=== PATIENT | male | born 1940 | race Two or more races ===

== ENCOUNTER → 2017-03-08 | Outpatient (CLI) | payer OTHER | LOC: CIMAGING 11:30 | PROVIDERS: ATTEND Family Medicine | DX: J18.9 Pneumonia, unspecified organism (principal); J44.1 Chronic obstructive pulmonary disease with (acute) exacerbation | CPT/HCPCS: 71020-PO ==

== ENCOUNTER → 2017-06-14 | Outpatient (CLI) | payer OTHER | LOC: CIMAGING 15:20 | PROVIDERS: ATTEND Family Medicine | DX: J18.9 Pneumonia, unspecified organism (principal); J44.9 Chronic obstructive pulmonary disease, unspecified | CPT/HCPCS: 71020-PO ==

== ENCOUNTER → 2017-08-11 | Outpatient (CLI) | payer OTHER | LOC: BHFA 14:00 | PROVIDERS: ATTEND Internal Medicine Cardiovascular Disease | DX: I25.10 Atherosclerotic heart disease of native coronary artery without angina pectoris (principal) | CPT/HCPCS: 78452; 93017; A9500 ==

== ENCOUNTER 2017-08-17 12:47 | Day surgery (SDC) | payer OTHER ==
[2017-08-17] MEDS ORDERED: NS 1,000 ML IV ONE (12:48)
[2017-08-17] MEDS ORDERED: diphenhydrAMINE 25 MG CAP PO ONE ×2 (12:48→13:27)
[2017-08-17] MEDS ORDERED: DIAZEPAM 5 MG TAB PO ONE (12:48)
[2017-08-17] MEDS ORDERED: ASPIRIN EC 325 MG TAB PO ONE ×2 (12:48→13:28)
[2017-08-17] MEDS ORDERED: FAMOTIDINE 20 MG TAB PO ONE (12:48)
--- NOTE | 2017-08-17 13:15 | CPEKG ---
Heart Rate: 57 RR Interval: 1053 P-R Interval: 126 QRSD Interval: 108 QT Interval: 452 QTC Interval: 440 P [place]: -38 QRS [place]: -46 T Wave [place]: 51 EKG Severity - ABNORMAL ECG - EKG Impression: SINUS RHYTHM EKG Impression: LEFT ANTERIOR FASCICULAR BLOCK Electronically Signed By: Sarabjit Sargent 17-Aug-2017 13:30:20
[2017-08-17] MEDS ORDERED: FAMOTIDINE 20 MG TAB ONE (13:27)
[2017-08-17 13:28] LABS: PLATELET COUNT 147 10^3/uL (150-400)
[2017-08-17] MEDS ORDERED: DIAZEPAM 5 MG TAB ONE (13:28)
[2017-08-17 13:37] LABS: INR 1.02 (0.83-1.16); PROTIME(PATIENT) 13.6 SEC (12.0-15.0)
[2017-08-17] MEDS ORDERED: LIDOCAINE 1% 300 MG/30 ML SDV ONE (14:18)
[2017-08-17] MEDS ORDERED: fentaNYL 100 MCG/2 ML INJ ONE ×2 (14:19→15:33)
[2017-08-17] MEDS ORDERED: MIDAZOLAM 2 MG/2 ML VIAL ONE ×3 (14:19→15:33)
[2017-08-17] MEDS ORDERED: IOPAMIDOL (ISOVUE-370) 150 ML BTL IV ONE (14:19)
--- NOTE | 2017-08-17 15:07 | PDPROPOC ---
Sedation Plan of Care Sedation Plan of Care: vital signs stable, mental status noted, patient educated of risks, benefits, alternatives, patient can tolerate sedation ASA Classification: ASA 2 Planned drugs: fentanyl, midazolam Mallampati Score: Class 3 Mallampati Reference Image: Patient passed 3-3-2 rule?: Yes
--- NOTE | 2017-08-17 15:07 | PDHPUP ---
History & Physical Update H&P update statement: This history and physical update is based on an assessment of the patient which was completed after admission or registration (within 24 hours), but prior to the surgery/procedure. H&P update: H&P reviewed & patient examined, no change in patient's condition since H&P completed
[2017-08-17] MEDS ORDERED: MAGNESIUM SULF 1 GM/DEXTROSE 100 ML BAG IV ONE (15:28)
--- NOTE | 2017-08-17 16:52 | PDDXCAT ---
Diagnostic Cath Note - . Date: 08/17/17 Inspector Set Up And Lay Out: Zoran Indication: Class III or IV angina, which improves to class I/II w medical therapy - Procedure Access: right groin Procedure: left heart catheterization, coronary angiography, left ventriculogram - Materials Left Heart Cath size: 6F Left Heart Cath materials: standard multipack (JL4, JR4, pigtail) - Findings-Left Heart Catheterization LM: Medium diameter with bifurcation into the LAD and LCX vessels. No luminal irregularities were noted. LAD: Medium diameter vessel with early diag take off. Second diag is the more principal of the two. Moderate prox/mid calcification was noted. Patent stent to the mid LAD appreciated (with 10% luminal irregularities). In the proximal vessel (in vicinity of the calcium) there is upwards of 50% stenosis noted. LCX: Medium to large caliber vessel with early OM take off (smallish). Second diagonal is more principal of the brach vessels noted. There is 20% luminal irregularities noted in the mid vessel. RCA: Medium diameter vessel with minor luminal irregularities noted. Dominant vessel given supply to the PDA. EDP: 19 mm Hg LVEF: >65% Wall motion: normal wall motion Complications: none Estimated blood loss: <50ml Closure method: Angioseal Assessment: 77 y/o male with history of CAD s/p PCI to the mid LAD. Abnormal stress testing without appreciable, critical CAD noted. Previously stented vessel with minimal luminal irregularities. There was a 50% lesion (lengthy) to the proximal LAD. Issues with medication compliance voiced again today. Plan: Aggressive medical management to continue, with a great need to have compliance that has not been achieved (reasons are not clear). Statins and antihypertensive therapy MUST be taken. Patient has also reported tobacco use, which needs to stop. ASA therapy for life. Would have the patient seen in the outpatient clinic in 7-10 days for assessment of groin, but more importantly, reiteration of compliance with prescribed medical therapy. Intervention: none
== END 2017-08-17 19:11 | disposition home or self-care (01) ==
LOC: FCATH 12:47
PROVIDERS: ATTEND Internal Medicine Cardiovascular Disease
DX: I25.119 Atherosclerotic heart disease of native coronary artery with unspecified angina pectoris (principal); Z91.19 Patient's noncompliance with other medical treatment and regimen; E78.5 Hyperlipidemia, unspecified; I10 Essential (primary) hypertension; E11.9 Type 2 diabetes mellitus without complications; F17.210 Nicotine dependence, cigarettes, uncomplicated; G47.33 Obstructive sleep apnea (adult) (pediatric)
CPT/HCPCS: C1760; J1644; J2250; J3010; J3475; Q9967

== ENCOUNTER → 2017-09-12 | Outpatient (CLI) | payer OTHER | LOC: CIMAGING 14:05 | PROVIDERS: ATTEND Family Medicine | DX: J98.11 Atelectasis (principal); J44.9 Chronic obstructive pulmonary disease, unspecified; Z95.5 Presence of coronary angioplasty implant and graft | CPT/HCPCS: 71046-PO ==

== ENCOUNTER → 2018-01-05 | Outpatient (CLI) | payer OTHER ==
[~2018-01-05] MED LIST: IOPAMIDOL (ISOVUE-300) 100 ML BTL ONE
== END ==
LOC: CIMAGING 14:23
PROVIDERS: ATTEND Family Medicine
DX: K86.9 Disease of pancreas, unspecified (principal); E27.9 Disorder of adrenal gland, unspecified; J98.11 Atelectasis; J44.9 Chronic obstructive pulmonary disease, unspecified; I25.10 Atherosclerotic heart disease of native coronary artery without angina pectoris; F17.290 Nicotine dependence, other tobacco product, uncomplicated
CPT/HCPCS: 71260; 74177; Q9967; 82565-PO

== ENCOUNTER → 2018-01-09 | Outpatient (CLI) | payer OTHER ==
[~2018-01-09] MED LIST changes: +GADOBUTROL 10 ML VIAL IVP ONE; -IOPAMIDOL (ISOVUE-300) 100 ML BTL ONE
== END ==
LOC: FIMAGING 14:06
PROVIDERS: ATTEND Family Medicine
DX: K86.9 Disease of pancreas, unspecified (principal); R63.4 Abnormal weight loss; Z72.0 Tobacco use
CPT/HCPCS: 74183; A9585

== ENCOUNTER → 2018-08-09 | Outpatient (CLI) | payer OTHER | LOC: CIMAGING 12:08 | PROVIDERS: ATTEND Family Medicine | DX: C25.9 Malignant neoplasm of pancreas, unspecified (principal); I26.99 Other pulmonary embolism without acute cor pulmonale; R06.02 Shortness of breath; R09.02 Hypoxemia; Z99.81 Dependence on supplemental oxygen; J98.11 Atelectasis; K76.9 Liver disease, unspecified; N28.1 Cyst of kidney, acquired | CPT/HCPCS: 36415-PO; 71275-PO; 74177-PO; 82565-PO; 86301-90 ==

== ENCOUNTER → 2018-10-28 | Outpatient (CLI) | payer OTHER ==
[~2018-10-28] MED LIST changes: -GADOBUTROL 10 ML VIAL IVP ONE; +IOPAMIDOL (ISOVUE-300) 100 ML BTL ONE
== END ==
LOC: CIMAGING 11:24
PROVIDERS: ATTEND Family Medicine
DX: K76.9 Liver disease, unspecified (principal); K63.89 Other specified diseases of intestine; C25.9 Malignant neoplasm of pancreas, unspecified; Z90.81 Acquired absence of spleen; Z90.411 Acquired partial absence of pancreas
CPT/HCPCS: 74177; Q9967; 82565-PO

== ENCOUNTER 2018-11-02 09:17 | Inpatient (IN) | payer OTHER ==
[2018-11-02] MEDS ORDERED: NS 2,600 ML IV ONE (10:17)
--- NOTE | 2018-11-02 10:19 | EDPHY ---
H & P Stated Complaint: sent from tina ? pna fever hypoxia Time Seen by Provider: 11/02/18 10:12 HPI/ROS: CHIEF COMPLAINT: Fatigue, fever, short of breath, confusion HISTORY OF PRESENT ILLNESS: Patient is a 78-year-old man with a history of pancreatic cancer status post Whipple currently receiving chemotherapy. Also mild COPD. He presented to Dr. Tina Sr office today stating that he was fatigued and short of breath. Dr. Arango felt that he had left lower lobe rhonchi and was 86% on room air. His temperature is 99.9 degrees. He sent him here for further evaluation. The patient tells me that he feels confused as well and that he woke up on the ground some point in the middle the night and thinks he might have fainted. He is not sure how he got there what happened. He woke up this morning and thought that he was in [place]. He denies chest pain. No nausea vomiting or diarrhea. No urinary symptoms. He does state that he had left lower abdominal pain last week and was started on an unknown antibiotic by his doctor that has made him feel better. He denies cough, sore throat or runny nose. Severity: Moderate Modifying factors: None REVIEW OF SYSTEMS: Constitutional: See HPI EENTM: denies: blurred vision, double vision, nose congestion Respiratory: See HPI Cardiac: denies: chest pain, irregular heart rate, lightheadedness, palpitations Gastrointestinal/Abdominal: denies: abdominal pain, diarrhea, nausea, vomiting, blood streaked stools Genitourinary: denies: dysuria, frequency, hematuria, pain Musculoskeletal: denies: joint pain, muscle pain Skin: denies: lesions, rash, jaundice, bruising Neurological: denies: headache, numbness, paresthesia, tingling, dizziness, weakness Hematologic/Lymphatic: denies: blood clots, easy bleeding, easy bruising Immunologic/allergic: denies: HIV/AIDS, transplant 10 systems reviewed and negative except as noted EXAM: GENERAL: Thin, dry, weak HEAD: Atraumatic, normocephalic. EYES: Pupils equal round and reactive to light, extraocular movements intact, sclera anicteric, conjunctiva are normal. ENT: TMs normal, nares patent, oropharynx clear without exudates. Moist mucous membranes. NECK: Normal range of motion, supple without lymphadenopathy or JVD. LUNGS: Breath sounds clear to auscultation bilaterally and equal. No wheezes rales or rhonchi. HEART: Regular rate and rhythm without murmurs, rubs or gallops. ABDOMEN: Soft, nontender, normoactive bowel sounds. No guarding, no rebound. No masses appreciated. BACK: No CVA tenderness, no spinal tenderness, step-offs or deformities EXTREMITIES: Normal range of motion, no pitting or edema. No clubbing or cyanosis. NEUROLOGICAL: Cranial nerves II through XII grossly intact. Normal speech, normal gait. 4/5 strength, normal movement in all extremities, normal sensation , normal reflexes PSYCH: Normal mood, normal affect. SKIN: Warm, dry, normal turgor, no visible rashes or lesions. Source: Patient Exam Limitations: No limitations - Personal History Current Tetanus Diphtheria and Acellular Pertussis (TDAP): Yes - Medical/Surgical History Hx Asthma: No Hx Chronic Respiratory Disease: Yes Hx Diabetes: Yes Hx Cardiac Disease: No Hx Renal Disease: No Hx Cirrhosis: No Hx Alcoholism: No Hx HIV/AIDS: No Hx Splenectomy or Spleen Trauma: No Other PMH: pancreatic cancer/chemo patient /copd/ htn chronic pain back /neck - Family History Significant Family History: No pertinent family hx - Social History Smoking Status: Former smoker Alcohol Use: None Constitutional: Initial Vital Signs Temperature (C) 38.1 C 11/02/18 09:24 Heart Rate 60 11/02/18 09:24 Respiratory Rate 18 11/02/18 09:24 Blood Pressure 94/55 L 11/02/18 09:24 O2 Sat (%) 95 11/02/18 09:24 O2 Delivery Mode Room Air O2 (L/minute) 3 Allergies/Adverse Reactions: No Known Allergies Allergy (Verified 11/02/18 09:22) Home Medications: Medication Instructions Recorded Atorvastatin Calcium [Lipitor 40 40 mg PO HS 08/15/17 mg (*)] Insulin Degludec [Tresiba 15 units SQ BID 08/15/17 Flextouch U-100] Metformin HCl [Metformin 1000 mg] 1,000 mg PO BID 08/15/17 amLODIPine BESYLATE [Norvasc 10 mg 10 mg PO HS 08/15/17 (*)] morphINE SR [MS Contin/Oramorph SR 30 mg PO TID 01/24/18 30 mg (*)] Amoxicillin/Clavulanate Pot 875 mg PO BID 11/02/18 [Augmentin 875 MG TAB (*)] Gabapentin [Neurontin 300 MG (*)] 600 - 900 mg PO BID@,21 11/02/18 Gabapentin [Neurontin 300 MG (*)] 600 mg PO DAILY@12 11/02/18 Insulin Lispro [Humalog] 0 - 11 unit SQ QIDMEAL 11/02/18 Lipase/Protease/Amylase [Cata Dr 2 - 3 each PO TIDMEAL 11/02/18 3,000 Units Capsule] Metoprolol Tartrate [Lopressor 25 25 mg PO BID 11/02/18 mg (*)] Omeprazole 40 mg PO DAILY 11/02/18 Rivaroxaban [Xarelto 10mg (*)] 20 mg PO HS 11/02/18 oxyCODONE IR [Oxycodone Ir (*)] 20 mg PO Q6HRS PRN 11/02/18 Medical Decision Making - Diagnostics EKG Interpretation: An EKG obtained and was read and documented in trace view. Please see trace view for full reading and report. Sinus rhythm, no acute ischemic changes Imaging Results: Imaging Impressions Chest X-Ray 11/02/18 10:17 Impression: 1. Stable elevation right hemidiaphragm with adjacent compressive atelectatic change. 2. Patchy infiltrate/pneumonia suspected left lower lobe posteriorly. Head CT 11/02/18 10:19 Impression: 1. No acute intracranial findings. 2. Diffuse cerebral atrophy with periventricular and subcortical low attenuation consistent with chronic microvascular ischemic gliosis. Findings discussed with DEBBY SANTANA 11/02/2018 at 11:50. Imaging: Discussed imaging studies w/ order desk caller Radiologist ED Course/Re-evaluation: Patient has pneumonia on x-ray. He is hypoxic pad he meets criteria for severe sepsis. Fluid bolus and antibiotics have been given. Will admit to the hospitalist service. Discussed the case with hospital service who will admit. Oncology Dr. Michaels is also here to evaluate as well as Dr. Barkley. Differential Diagnosis: Partial list of the Differential diagnosis considered include but were not limited to; pneumonia, sepsis, syncope, dehydration, arrhythmia and although unlikely based on the history and physical exam, I also considered metastasis, intracranial injury. I discussed these differential diagnoses and the plan with the patient as well as the usual and expected course. The patient understands that the diagnosis is provisional and that in medicine we are not always correct and that further workup is often warranted. Usual and customary warnings were given. All of the patient's questions were answered. The patient was instructed to return to the emergency department should the symptoms at all worsen or return, otherwise to followup with the physician as we discussed. - Data Points Laboratory Results: Laboratory Results 11/02/18 10:30 11/02/18 10:30 11/02/18 11/02/18 11/02/18 11:12 10:30 10:30 WBC RBC Hgb Hct MCV MCH MCHC RDW Plt Count MPV Neut % (Auto) Lymph % (Auto) [place] % (Auto) Eos % (Auto) Baso % (Auto) Nucleat RBC Rel Count Absolute Neuts (auto) Absolute Lymphs (auto) Absolute Monos (auto) Absolute Eos (auto) Absolute Basos (auto) Absolute Nucleated RBC Immature Gran % Seg Neutrophils % Band Neutrophils % Lymphocytes % Monocytes % Eosinophils % Basophils % Metamyelocytes % Myelocytes % Promyelocytes % Blast Cells % Immature Gran # Absolute Seg Neuts Absolute Band Neuts Absolute Lymphocytes Absolute Monocytes Absolute Eosinophils Absolute Basophils Absolute Metamyelocyte Absolute Myelocytes Absolute Promyelocytes Absolute Plasma Cells Nucleated RBCs Absolute Blast Cells Plasma Cells % Toxic Granulation Dohle Bodies Platelet Estimate Hypochromasia Pappenheimer Bodies Oval Macrocytes [place] Bodies Echinocytes Acanthocytes (Spur) Smear Review By PT 19.4 SEC H SEC (12.0-15.0) INR 1.72 H (0.83-1.16) APTT 34.7 SEC SEC (23.0-38.0) VBG Lactic Acid 1.4 mmol/L mmol/L (0.7-2.1) Sodium 134 mEq/L L mEq/L (135-145) Potassium 3.9 mEq/L mEq/L (3.5-5.2) Chloride 103 mEq/L mEq/L (97-110) Carbon Dioxide 23 mEq/l mEq/l (22-31) Anion Gap 8 mEq/L mEq/L (6-14) BUN 18 mg/dL mg/dL (7-23) Creatinine 1.1 mg/dL mg/dL (0.7-1.3) Estimated GFR > 60 Glucose 134 mg/dL H mg/dL (70-100) Calcium 8.2 mg/dL L mg/dL (8.5-10.4) Total Bilirubin 0.7 mg/dL mg/dL (0.1-1.4) Creatine Kinase 764 IU/L H IU/L (0-224) CK-MB (CK-2) Fraction 3.85 ng/mL ng/mL (0.00-4.55) CK-MB (CK-2) % 0.5 % % (0.0-4.0) Creatine Kinase Interp NEGATIVE (NEGATIVE) 11/02/18 11/02/18 10:30 10:30 WBC 8.62 10^3/uL 10^3/uL (3.80-9.50) RBC 3.07 10^6/uL L 10^6/uL (4.40-6.38) Hgb 9.0 g/dL L g/dL (13.7-17.5) Hct 28.7 % L % (40.0-51.0) MCV 93.5 fL fL (81.5-99.8) MCH 29.3 pg pg (27.9-34.1) MCHC 31.4 g/dL L g/dL (32.4-36.7) RDW 21.3 % H % (11.5-15.2) Plt Count 131 10^3/uL L 10^3/uL (150-400) MPV TNP Neut % (Auto) 43.8 % % (39.3-74.2) Lymph % (Auto) 25.5 % % (15.0-45.0) [place] % (Auto) 29.8 % H % (4.5-13.0) Eos % (Auto) 0.1 % L % (0.6-7.6) Baso % (Auto) 0.2 % L % (0.3-1.7) Nucleat RBC Rel Count 0.9 % H % (0.0-0.2) Absolute Neuts (auto) 3.77 10^3/uL 10^3/uL (1.70-6.50) Absolute Lymphs (auto) 2.20 10^3/uL 10^3/uL (1.00-3.00) Absolute Monos (auto) 2.57 10^3/uL H 10^3/uL (0.30-0.80) Absolute Eos (auto) 0.01 10^3/uL L 10^3/uL (0.03-0.40) Absolute Basos (auto) 0.02 10^3/uL 10^3/uL (0.02-0.10) Absolute Nucleated RBC 0.08 10^3/uL H 10^3/uL (0-0.01) Immature Gran % 0.6 % % (0.0-1.1) Seg Neutrophils % 43.3 % % Band Neutrophils % 8.2 % % Lymphocytes % 26.8 % % Monocytes % 21.7 % % Eosinophils % 0.0 % % Basophils % 0.0 % % Metamyelocytes % 0.0 % % Myelocytes % 0.0 % % Promyelocytes % 0.0 % % Blast Cells % 0.0 % % Immature Gran # 0.05 10^3/uL 10^3/uL (0.00-0.10) Absolute Seg Neuts 3.73 10^3/uL 10^3/uL (1.70-6.50) Absolute Band Neuts 0.71 10^3/uL H 10^3/uL (0.00-0.70) Absolute Lymphocytes 2.31 10^3/uL 10^3/uL (1.00-3.00) Absolute Monocytes 1.87 10^3/uL H 10^3/uL (0.30-0.80) Absolute Eosinophils 0.00 10^3/uL L 10^3/uL (0.03-0.40) Absolute Basophils 0.00 10^3/uL L 10^3/uL (0.02-0.10) Absolute Metamyelocyte 0.00 10^3/mL 10^3/mL (0.00-0.00) Absolute Myelocytes 0.00 10^3/mL 10^3/mL (0.00-0.00) Absolute Promyelocytes 0.00 10^3/uL 10^3/uL (0.00-0.00) Absolute Plasma Cells 0.00 10^3/uL 10^3/uL (0.00-0.00) Nucleated RBCs 2.1 /100 WBC H /100 WBC (0-0) Absolute Blast Cells 0.00 10^3/uL 10^3/uL (0.00-0.00) Plasma Cells % 0.0 % % Toxic Granulation PRESENT H Dohle Bodies PRESENT H Platelet Estimate DECREASED L (ADEQ) Hypochromasia 1+ H Pappenheimer Bodies 1+ H Oval Macrocytes 2+ H [place] Bodies 1+ H Echinocytes 2+ H Acanthocytes (Spur) 1+ H Smear Review By Pending PT INR APTT VBG Lactic Acid 2.7 mmol/L H mmol/L (0.7-2.1) Sodium Potassium Chloride Carbon Dioxide Anion Gap BUN Creatinine Estimated GFR Glucose Calcium Total Bilirubin Creatine Kinase CK-MB (CK-2) Fraction CK-MB (CK-2) % Creatine Kinase Interp Medications Given: Discontinued Medications Sodium Chloride (Ns) 2,600 mls @ 5,200 mls/hr 30 ml/kg infuse over 30 min ( 2600 ml) IV EDNOW ONE PRN Reason: Protocol Stop: 11/02/18 10:46 Last Admin: 11/02/18 10:41 Dose: 2,600 mls Azithromycin 500 mg/ Sodium (Chloride) 255 mls @ 255 mls/hr IV EDNOW ONE PRN Reason: Protocol Stop: 11/02/18 12:46 Last Admin: 11/02/18 12:00 Dose: 255 mls Ceftriaxone Sodium/Dextrose (Rocephin 1 Gm (Premix)) 50 mls @ 100 mls/hr IV EDNOW ONE PRN Reason: Protocol Stop: 11/02/18 12:15 Last Admin: 11/02/18 11:58 Dose: 50 mls Departure - Departure Disposition: [facility] Inpatient Acute Clinical Impression: Severe sepsis Pneumonia Qualifiers: Pneumonia type: due to unspecified organism Laterality: left Lung location: lower lobe of lung Qualified Code(s): J18.1 - Lobar pneumonia, unspecified organism Condition: Fair
[2018-11-02 11:01] LABS: PLATELET COUNT 131 10^3/uL (150-400)
[2018-11-02 11:07] LABS: CREATINE KINASE 764 IU/L (0-224)
[2018-11-02 11:40] LABS: INR 1.72 (0.83-1.16); PROTIME(PATIENT) 19.4 SEC (12.0-15.0)
[2018-11-02] MEDS ORDERED: AZITHROMYCIN IV 500 MG in NS 250 ML IV ONE (11:47)
--- NOTE | 2018-11-02 12:06 | CPEKG ---
Test Reason : OPEN Blood Pressure : / mmHG Vent. Rate : 056 BPM Atrial Rate : 056 BPM P-R Int : 153 ms QRS Dur : 115 ms QT Int : 490 ms P-R-T Axes : 058 -43 048 degrees QTc Int : 473 ms Sinus rhythm Nonspecific IVCD with LAD Confirmed by Kirk Lowe ([id number]) on 11/02/2018 12:05:57 PM Referred By: Kirk Lowe Confirmed By:Kirk Lowe
--- NOTE | 2018-11-02 13:24 | PDGENHP ---
History and Physical - Chief Complaint Chief complaint: Fatigue, generalized weakness, intermittent confusion/mem - History of Present Illness he patient is a 78-year-old male with a 2 week history of progressively worsening generalized weakness and fatigue. Last night he fell in his bathroom and was too weak to get up, so he fell asleep for a few hours. His son was unable to get ahold of him, so he drove out to help his father get up again and get into his bed. Overnight the patient does not remember falling out of his bed , but he woke up on the floor of his bedroom early this morning. He initially thought he must be in a hotel room in [place] because he did not recognize his surroundings. Later, he realized he was in his own home. The patient went to his HemOnc appointment at the [facility] today, where he was found to have rhonchi in is left lung, O2 sat 86% on RA, and Temp 99.9F. He was promptly sent to the ED, where chest XR showed LLL patchy infiltrate and head CT was negative for acute changes. Last week, the patient started to get LLQ abdominal pain which was similar to when he was hospitalized at [facility] for ischemic colitis. His PCP had put him on Augmentin 4 days ago for this issue. Symptoms of weakness are better with rest. Nothing makes the fatigue and intermittent confusion/memory loss better. He feels frustrated because he is unable to remember some things, like the name of the surgeon who performed his cancer resection surgery in July. He had been diagnosed with a blood clot ( pointing out his R abdomen), but does not remember the name of it. He does not recall having these symptoms in the past. Past medical history: COPD, CAD, diabetes, HLD, HTN, TOM, pancreatic cancer, PE , PNA x 2 Past surgical history: Partial Pancreas/spleen resection, coronary stents, eye surgery, hernia repair, carotid artery stenosis Medications: Please see med rec form. Patient was recently started on Augmentin 4 days ago by his PCP for suspected recurrent ischemic colitis. Allergies: No known allergies. Social history: Former smoker of 40 years. Does not drink alcohol or do drugs. Lives alone. His son lives in the [facility] area. Family history: Congestive heart failure. History Information - Allergies/Home Medication List Allergies/Adverse Reactions: No Known Allergies Allergy (Verified 11/02/18 09:22) Home Medications: Atorvastatin Calcium [Lipitor 40 mg (*)] 40 mg PO HS 08/15/17 [Last Taken ] Insulin Degludec [Tresiba Flextouch U-100] 15 units SQ BID 08/15/17 [Last Taken 11/01/18 21:00] Metformin HCl [Metformin 1000 mg] 1,000 mg PO BID 08/15/17 [Last Taken 11/01/18 21:00] amLODIPine BESYLATE [Norvasc 10 mg (*)] 10 mg PO HS 08/15/17 [Last Taken ] morphINE SR [MS Contin/Oramorph SR 30 mg (*)] 30 mg PO TID 01/24/18 [Last Taken 11/01/18 21:00] Amoxicillin/Clavulanate Pot [Augmentin 875 MG TAB (*)] 875 mg PO BID 11/02/18 [ Last Taken 11/02/18] Gabapentin [Neurontin 300 MG (*)] 600 - 900 mg PO BID@11/02/18 [Last Taken 11/01/18 21:00] Gabapentin [Neurontin 300 MG (*)] 600 mg PO DAILY@12 11/02/18 [Last Taken ] Insulin Lispro [Humalog] 0 - 11 unit SQ QIDMEAL 11/02/18 [Last Taken 11/01/18 18 :00] Lipase/Protease/Amylase [Creon Dr 3,000 Units Capsule] 2 - 3 each PO TIDMEAL 08/22 [Last Taken 11/01/18 18:00] Metoprolol Tartrate [Lopressor 25 mg (*)] 25 mg PO BID 11/02/18 [Last Taken 07/22 21:00] Omeprazole 40 mg PO DAILY 11/02/18 [Last Taken 11/01/18] Rivaroxaban [Xarelto 10mg (*)] 20 mg PO HS 11/02/18 [Last Taken 11/01/18] oxyCODONE IR [Oxycodone Ir (*)] 20 mg PO Q6HRS PRN 11/02/18 [Last Taken 11/02/18 ] I have personally reviewed and updated: family history, medical history, social history, surgical history - Social History Smoking Status: Former smoker Alcohol Use: None Review of Systems Review of Systems: ROS: 10pt was reviewed & negative except for what was stated in HPI & below Physical Exam Physical Exam: General: The patient is a male who is alert and in no acute distress. HEENT: normocephalic, extraocular movements intact, conjunctivae clear. Nares and oral mucosa pink and moist. Neck: trachea midline, no visible masses, no external lesions. CV: +S1/S2, RRR, no MRG. Resp: unlabored, CTAB no RRW. Abd: soft and nondistended. Old midline surgical scar noted. Mild LQ tenderness to deep palpation. Musculoskeletal: Normal muscle tone and bulk. Neuro: cranial nerves II - XII grossly intact. Intact gross motor and sensory function. Psych: appropriate mood/affect. + mild memory loss and difficulty remembering names. Skin: Mild pallor. Heme/lymph: +3 pitting edema bilateral ankles. Temp Pulse Resp BP Pulse Ox 37.0 C 78 18 132/80 H 95 11/02/18 12:49 11/02/18 12:49 11/02/18 12:49 11/02/18 12:49 11/02/18 12:49 O2 (L/minute) 3 Lab Data & Imaging Review 11/02/18 10:30 11/02/18 10:30 WBC 8.62 10^3/uL (3.80-9.50) 11/02/18 10:30 RBC 3.07 10^6/uL (4.40-6.38) L 11/02/18 10:30 Hgb 9.0 g/dL (13.7-17.5) L 11/02/18 10:30 Hct 28.7 % (40.0-51.0) L 11/02/18 10:30 MCV 93.5 fL (81.5-99.8) 11/02/18 10:30 MCH 29.3 pg (27.9-34.1) 11/02/18 10:30 MCHC 31.4 g/dL (32.4-36.7) L 11/02/18 10:30 RDW 21.3 % (11.5-15.2) H 11/02/18 10:30 Plt Count 131 10^3/uL (150-400) L 11/02/18 10:30 MPV TNP 11/02/18 10:30 Neut % (Auto) 43.8 % (39.3-74.2) 11/02/18 10:30 Lymph % (Auto) 25.5 % (15.0-45.0) 11/02/18 10:30 [place] % (Auto) 29.8 % (4.5-13.0) H 11/02/18 10:30 Eos % (Auto) 0.1 % (0.6-7.6) L 11/02/18 10:30 Baso % (Auto) 0.2 % (0.3-1.7) L 11/02/18 10:30 Nucleat RBC Rel Count 0.9 % (0.0-0.2) H 11/02/18 10:30 Absolute Neuts (auto) 3.77 10^3/uL (1.70-6.50) 11/02/18 10:30 Absolute Lymphs (auto) 2.20 10^3/uL (1.00-3.00) 11/02/18 10:30 Absolute Monos (auto) 2.57 10^3/uL (0.30-0.80) H 11/02/18 10:30 Absolute Eos (auto) 0.01 10^3/uL (0.03-0.40) L 11/02/18 10:30 Absolute Basos (auto) 0.02 10^3/uL (0.02-0.10) 11/02/18 10:30 Absolute Nucleated RBC 0.08 10^3/uL (0-0.01) H 11/02/18 10:30 Immature Gran % 0.6 % (0.0-1.1) 11/02/18 10:30 Seg Neutrophils % 43.3 % 11/02/18 10:30 Band Neutrophils % 8.2 % 11/02/18 10:30 Lymphocytes % 26.8 % 11/02/18 10:30 Monocytes % 21.7 % 11/02/18 10:30 Eosinophils % 0.0 % 11/02/18 10:30 Basophils % 0.0 % 11/02/18 10:30 Metamyelocytes % 0.0 % 11/02/18 10:30 Myelocytes % 0.0 % 11/02/18 10:30 Promyelocytes % 0.0 % 11/02/18 10:30 Blast Cells % 0.0 % 11/02/18 10:30 Immature Gran # 0.05 10^3/uL (0.00-0.10) 11/02/18 10:30 Absolute Seg Neuts 3.73 10^3/uL (1.70-6.50) 11/02/18 10:30 Absolute Band Neuts 0.71 10^3/uL (0.00-0.70) H 11/02/18 10:30 Absolute Lymphocytes 2.31 10^3/uL (1.00-3.00) 11/02/18 10:30 Absolute Monocytes 1.87 10^3/uL (0.30-0.80) H 11/02/18 10:30 Absolute Eosinophils 0.00 10^3/uL (0.03-0.40) L 11/02/18 10:30 Absolute Basophils 0.00 10^3/uL (0.02-0.10) L 11/02/18 10:30 Absolute Metamyelocyte 0.00 10^3/mL (0.00-0.00) 11/02/18 10:30 Absolute Myelocytes 0.00 10^3/mL (0.00-0.00) 11/02/18 10:30 Absolute Promyelocytes 0.00 10^3/uL (0.00-0.00) 11/02/18 10:30 Absolute Plasma Cells 0.00 10^3/uL (0.00-0.00) 11/02/18 10:30 Nucleated RBCs 2.1 /100 WBC (0-0) H 11/02/18 10:30 Absolute Blast Cells 0.00 10^3/uL (0.00-0.00) 11/02/18 10:30 Plasma Cells % 0.0 % 11/02/18 10:30 Toxic Granulation PRESENT H 11/02/18 10:30 Dohle Bodies PRESENT H 11/02/18 10:30 Platelet Estimate DECREASED (ADEQ) L 11/02/18 10:30 Hypochromasia 1+ H 11/02/18 10:30 Pappenheimer Bodies 1+ H 11/02/18 10:30 Oval Macrocytes 2+ H 11/02/18 10:30 Hooper-Kramer Bodies 1+ H 11/02/18 10:30 Echinocytes 2+ H 11/02/18 10:30 Acanthocytes (Spur) 1+ H 11/02/18 10:30 PT 19.4 SEC (12.0-15.0) H 11/02/18 10:30 INR 1.72 (0.83-1.16) H 11/02/18 10:30 APTT 34.7 SEC (23.0-38.0) 11/02/18 10:30 VBG Lactic Acid 1.4 mmol/L (0.7-2.1) 11/02/18 11:12 Sodium 134 mEq/L (135-145) L 11/02/18 10:30 Potassium 3.9 mEq/L (3.5-5.2) 11/02/18 10:30 Chloride 103 mEq/L (97-110) 11/02/18 10:30 Carbon Dioxide 23 mEq/l (22-31) 11/02/18 10:30 Anion Gap 8 mEq/L (6-14) 11/02/18 10:30 BUN 18 mg/dL (7-23) 11/02/18 10:30 Creatinine 1.1 mg/dL (0.7-1.3) 11/02/18 10:30 Estimated GFR > 60 11/02/18 10:30 Glucose 134 mg/dL (70-100) H 11/02/18 10:30 Calcium 8.2 mg/dL (8.5-10.4) L 11/02/18 10:30 Total Bilirubin 0.7 mg/dL (0.1-1.4) 11/02/18 10:30 Creatine Kinase 764 IU/L (0-224) H 11/02/18 10:30 CK-MB (CK-2) Fraction 3.85 ng/mL (0.00-4.55) 11/02/18 10:30 CK-MB (CK-2) % 0.5 % (0.0-4.0) 11/02/18 10:30 Creatine Kinase Interp NEGATIVE (NEGATIVE) 11/02/18 10:30 Visualized and Interpreted Chest x-ray results: Yes Chest X-Ray results: other (Elevation right hemidiaphragm with adjacent compressive atelectatic change. LLL patchy infiltrate.) Visualized and Interpreted EKG results: Yes EKG additional interpertation: NSR, rt 56, LAFB, IVCD, QTc 473 Assessment & Plan Assessment: Acute community acquired PNA Acute hypoxemic resp failure -associated fatigue, gen weakness, and intermittent confusion/mild memory impairment -CURB65, PSI scores - moderate - 9% estimated risk of mortality COPD, not in acute exacerbation TOM, on nocturnal O2 Colitis St IIB Pancreatic cancer, s/p resection, on FOLFIRINOX Immunocompromised status, 2/2 chemo and splenectomy Anemia, likely chronic Thrombocytopenia, likely a/w chemo H/o PE, on Xarelto Peripheral edema HTN CAD, s/p remote stenting Prolonged QTc HLD DM2 Anxiety Plan: -Check additional lab tests. Procalcitonin, strep/legionella Ag, sputum Cx. Check AM labs. -IVF given in ED - 2.5L -- holding off on additional fluids. -Continue Ceftriaxone, but increase dose. Switch azithro to doxycycline for atypical coverage, given prolonged QTc. -Add metronidazole to help w/ colitis coverage. -ST swallow eval to r/o aspiration. -Pt not wheezing, only on 3L O2. Hold off on steroid for now. -SVNs, O2 as needed. CPT, mucolytics. -Continue home meds, except for Augmentin. -PT/OT. -VTE ppx - Xarelto. -Code status - full. Inpatient status- for gen weakness that is not expected to resolve w/in 1 day.
--- NOTE | 2018-11-02 14:55 | GCON ---
[f rep st] CONSULTATION NEW PATIENT CONSULT. PRIMARY ONCOLOGIST: Dr. Alex Arango. REASON FOR CONSULTATION: Patient sent to the ER today with loss of consciousness and hypoxia. HISTORY OF PRESENT ILLNESS: The patient is a pleasant 78-year-old gentleman with a history of pancre atic cancer. His cancer diagnosis was locally advanced. He underwent neoadjuvant chemotherapy and r adiation, followed by more recent resection. Initial staging T2 N1 M0 or stage IIB. He has been und ergoing adjuvant chemotherapy and completing FOLFIRINOX. His last cycle of chemotherapy was given on 10/19/2018. Patient reports to me that he has had a recent diagnosis of ischemic colitis. He repor ts recent treatment with antibiotics and a longterm facility stay, where he had a fall delayin g his discharge. He continues on Xarelto at this time, as well as home medications. He reports that oxycodone is relatively new. Last evening, he reports syncopal episodes x2. He found himself in the bathroom unknowingly. He had not hit his head. His son was able to come over and move him back to his bed, and then he found him self on the floor after waking up again. He notably wears oxygen at night, and he denies any chest p ain. He has had more difficulty breathing lately. He denies any history of arrhythmias or severe is chemic heart disease. Denies any history of stroke. Dr. Arango saw the patient today and felt that he had left lower lobe rhonchi and was 86% on room air. Temp noted to be 99.9. On evaluation in the ER, he had a head CT that was unrevealing. Abdominal x-ray showed patchy infilt rate/pneumonia in left lower lobe. He has received azithromycin and ceftriaxone in the ED, as well a s normal saline. Vital signs currently 132/80, respiration rate 18, saturating 95% on 3 L. Temp is 37, so it was 38.1 at the time he was seen in the ER. REVIEW OF SYSTEMS: Other than increased work of breathing, patient denies any further symptoms today . He states he feels relatively well and is oriented x3 at this time. He does still report lower ab dominal pain, especially on the left side. He reports that his stools have been abnormal colored and slightly pale appearing. I will note that abdominal CT that was done 10/28/2018, shows postoperativ e changes of partial pancreatectomy and splenectomy, thickening of the wall of the sigmoid, possibly reflecting colitis, and an indeterminate hepatic lesion was less well demonstrated than on prior stud y. PERTINENT PAST MEDICAL HISTORY: Pancreatic cancer, COPD, hypertension, CAD, hyperlipidemia, obstruct vito sleep apnea, diabetes mellitus type 2, anxiety. PAST SURGICAL HISTORY: Partial pancreatectomy and splenectomy. FAMILY HISTORY: Non significant. SMOKING HISTORY: Former smoker, 2 packs a day. Quit May of 2018. PHYSICAL EXAMINATION: VITAL SIGNS: Blood pressure 132/80, respiration rate 18, saturating 95% on 3 L. Temperature is 37 currently. GENERAL: He is an elderly man. Looks older than his stated age. Not in acute distress. HEENT: Anicteric. Oropharynx is clear. NECK: Supple. Looks like he is wo rking to breathe. HEART: Regular rate and rhythm. LUNGS: Bilaterally show mild expiratory wheezin g with rhonchi at the left lower lobe. ABDOMEN: Soft. He has mild tenderness to palpation in left lower quadrant. LOWER EXTREMITIES: No edema. NEUROLOGIC: Nonfocal. He is A and O x3. Moving all extremities. LABORATORY EVALUATION: White blood cell 8.6, hemoglobin 9, hematocrit 28, platelet count 131. INR 1 .2. Lactic acid was initially 2.7 and now 1.4. Sodium 134, creatinine 1.1, calcium 8.2. Creatine k inase . IMAGING: As mentioned above. ASSESSMENT AND PLAN: A 78-year-old gentleman, currently on adjuvant treatment for stage IIB pancreat ic adenocarcinoma. Last chemotherapy received 10/19/2018. Today, he was discovered to be hypoxic in the clinic and noted a syncopal episode, so he was sent to the emergency department for evaluation. Based on laboratory analysis, imaging, and physical examination, patient has evidence of sepsis. He has elevated lactate, fever, and what looks like a pneumonia on chest x-ray. I assume his hypoxia was contributing to his syncopal episodes, although he does report 2 prior synco pal episodes in the last couple of months. I think, on admission, he should continue to be monitored on tele. We will see how he responds to intravenous antibiotics and intravenous fluids. From a can cer standpoint, he seems to have had adequate therapy and good response. PET-CT scan is planned in a couple weeks to evaluate. He plans another 2 cycles of chemotherapy and then will have completed ad juvant therapy. For his ischemic colitis, he continues on Xarelto. Is still having a lot of lower abdominal pain. A lso, has a history of DVT. We will continue to follow along this hospitalization and will inform Dr. Arango of patient's status . /[id number]/MODL
[2018-11-02] MEDS ORDERED: ALBUTEROL 3 ML DEYVIAL IH PRN (16:32)
[2018-11-02] MEDS ORDERED: PROMETHAZINE HCL 25 MG/ML INJ IVP PRN (16:32)
[2018-11-02] MEDS ORDERED: D50W 25 GM/50 ML SYR IVP PRN (16:52)
[2018-11-02] MEDS: LIPASE 6,000/AMYLASE/PROTEASE (CREON) 1 CAP PO SCH ×2 (17:47→17:48)
[2018-11-02] MEDS: INSULIN LISPRO 100 UNIT/ML SC SCH (17:47)
[2018-11-02] MEDS: oxyCODONE IR 5 MG TAB PO PRN (19:17)
[2018-11-02] MEDS ORDERED: oxyCODONE IR 5 MG TAB PO ONE (19:30)
[2018-11-02] MEDS: IPRATROPIUM/ALBUTEROL 3 ML DEYVIAL IH SCH (20:53)
[2018-11-02] MEDS: DOXYCYCLINE INJ 100 MG in NS 250 ML IV SCH (21:12)
[2018-11-02] MEDS: METOPROLOL TARTRATE 25 MG TAB PO SCH (21:18)
[2018-11-02] MEDS: INSULIN GLARGINE 100 UNITS/ML UNIT SC SCH (21:18)
[2018-11-02] MEDS: ATORVASTATIN CALCIUM 40 MG TAB PO SCH (21:18)
[2018-11-02] MEDS: metFORMIN HCL 500 MG TAB PO SCH (21:19)
[2018-11-02] MEDS: GABAPENTIN 300 MG CAP PO SCH (21:22)
[2018-11-02] MEDS: RIVAROXABAN 10 MG TAB PO SCH (21:23)
[2018-11-02] MEDS: morphINE SR 30 MG TAB PO SCH (21:25)
[2018-11-03] MEDS: IPRATROPIUM/ALBUTEROL 3 ML DEYVIAL IH SCH ×4 (05:39→21:52)
[2018-11-03] MEDS: oxyCODONE IR 5 MG TAB PO PRN ×5 (05:56→23:32)
[2018-11-03] MEDS: GABAPENTIN 300 MG CAP PO SCH ×3 (05:57→20:32)
[2018-11-03 06:37] LABS: PLATELET COUNT 132 10^3/uL (150-400)
[2018-11-03] MEDS: INSULIN LISPRO 100 UNIT/ML SC SCH ×3 (07:43→22:35)
[2018-11-03] MEDS: LIPASE 6,000/AMYLASE/PROTEASE (CREON) 1 CAP PO SCH ×3 (08:07→17:58)
[2018-11-03] MEDS: METOPROLOL TARTRATE 25 MG TAB PO SCH ×2 (08:07→20:37)
[2018-11-03] MEDS: MULTIVITAMINS 1 EACH TAB PO SCH (08:08)
[2018-11-03] MEDS: morphINE SR 30 MG TAB PO SCH ×3 (08:08→20:41)
[2018-11-03] MEDS: PANTOPRAZOLE SODIUM 40 MG TAB PO SCH (08:08)
[2018-11-03] MEDS: metFORMIN HCL 500 MG TAB PO SCH ×2 (08:08→20:40)
[2018-11-03] MEDS: INSULIN GLARGINE 100 UNITS/ML UNIT SC SCH ×2 (08:10→22:35)
--- NOTE | 2018-11-03 09:50 | PDMN ---
Medical Necessity Medical necessity: Change to IP, as of 11/02/18, per MD & MCG M-282; los >2 mn for ongoing management of pneumonia (CURB-65, PSI-moderate risk) w/acute hypoxemic respiratory failure, intermittent confusion, worsening weakness & fatigue w/falls & LOC; admit for further workup/monitoring, IV abx & therapies; comorbid advanced age, COPD, CAD, pancreatic cancer, immunocompromised
[2018-11-03] MEDS: DOXYCYCLINE INJ 100 MG in NS 250 ML IV SCH ×2 (09:58→21:00)
--- NOTE | 2018-11-03 10:11 | HOSPPROG ---
Hospitalist Progress Note Assessment/Plan: Acute community acquired PNA Acute hypoxemic resp failure -associated fatigue, gen weakness, and intermittent confusion/mild memory impairment -CURB65, PSI scores - moderate - 9% estimated risk of mortality COPD, not in acute exacerbation TOM, on nocturnal O2 Colitis Syncope Prolonged QTc CAD, s/p remote stenting HTN St IIB Pancreatic cancer, s/p resection, on FOLFIRINOX Immunocompromised status, 2/2 chemo and splenectomy Anemia, likely chronic Thrombocytopenia, likely a/w chemo H/o PE/DVT, on Xarelto Peripheral edema HLD DM2 Anxiety Plan: -Cardiac monitoring for syncope, to eval for arrhythmia. -IVF given in ED - 2.5L -- holding off on additional fluids as pt is euvolemic. -IV CTX. Doxycycline. -Metronidazole to help w/ colitis coverage. -Pt not wheezing, only on 3L O2. Hold off on steroid. -SVNs, O2 as needed. CPT, mucolytics. -Check XR R hand/wrist to r/o fracture from falling. Discussed w/ Dr. Michaels about possibility of pseudogout. -May consider CT wrist/hand tomorrow if pt still having severe pain. -Ice prn wrist pain. -PT/OT. -VTE ppx - Xarelto. -Code status - full. Inpatient status- for gen weakness that has not resolved, pt has ongoing need for PT/OT. Needs ongoing Abx, cardiac monitoring. Objective: Vital Signs Temp Pulse Resp BP Pulse Ox 36.9 C 92 12 137/71 H 91 L 11/03/18 07:25 11/02/18 21:32 11/03/18 07:25 11/03/18 07:25 11/03/18 07:25 Laboratory Results 11/03/18 06:10 11/03/18 06:10 11/02/18 11/03/18 11/04/18 05:59 05:59 05:59 Intake Total 960 Output Total 550 Balance 410 PT 19.4 SEC (12.0-15.0) H 11/02/18 10:30 INR 1.72 (0.83-1.16) H 11/02/18 10:30 - Time Spent With Patient Time Spent with Patient: greater than 35 minutes Time Spent with Patient: Greater than 35 minutes spent on this patients care, greater than 50% of time spent counseling, educating, and coordinating care regarding the above mentioned plan. ICD10 Worksheet Patient Problems: Problems Problem Status Onset Chronic Disease Mgmt/Transtional Care Acute Pneumonia Acute Severe sepsis Acute
[2018-11-03] MEDS: MAGNESIUM OXIDE 400 MG TAB PO SCH (10:40)
[2018-11-03] MEDS: MAGNESIUM SULF 2 GM/WATER 50 ML IV ONE ×2 (10:42→12:19)
--- NOTE | 2018-11-03 13:10 | SOAPPROG ---
SOAP Progress Note Assessment/Plan: Assessment/Plan: 78 yo gentleman w hx of stage IIB pancreatic adeno admitted w LOC and hypoxia 1. Hypoxia - likely cause of syncope; no arrhythmia and CV issue identified CXR shows LLL infiltrate O2 sat better on NC cont antibiotics PCR and other infectious workup negative 2. Stage IIB pancreatic adeno s/p neoadj chemo then XRT followed by partial pancreatic resection/splenectomy he is completing adjuvant FOLFIRINOX and restaging scans planned in a couple weeks last couple cycles delayed for ischemic colitis and rehab 3. Hx of DVT and ischemic colitis - Xarelto 4. Anemia - chemo related, monitor 5. Hand pain - out of proportion to exam; no obvious fracture consider pseudogout? will try to discuss w Dr Barkley 11/03/18 13:07 11/03/18 13:13 11/03/18 13:15 Subjective: No acute events but reporting increased R hand pain Objective: Vital Signs Temp Pulse Resp BP Pulse Ox 36.9 C 75 16 137/71 H 85 L 11/03/18 07:25 11/03/18 11:34 11/03/18 11:34 11/03/18 07:25 11/03/18 12:28 Laboratory Results 11/03/18 06:10 11/03/18 06:10 11/02/18 11/03/18 11/04/18 05:59 05:59 05:59 Intake Total 960 Output Total 550 Balance 410 PT 19.4 SEC (12.0-15.0) H 11/02/18 10:30 INR 1.72 (0.83-1.16) H 11/02/18 10:30 Gen - NAD CV - RRR Resp - coarse BS especially in LLL Abd - soft Ext - left hand temder to light touch on skin and mildly swollen over MCP ICD10 Worksheet Patient Problems: Problems Problem Status Onset Chronic Disease Mgmt/Transtional Care Acute Pneumonia Acute Severe sepsis Acute
[2018-11-03] MEDS: ATORVASTATIN CALCIUM 40 MG TAB PO SCH (20:41)
[2018-11-03] MEDS: RIVAROXABAN 10 MG TAB PO SCH (20:41)
[2018-11-04 04:18] LABS: PLATELET COUNT 141 10^3/uL (150-400)
[2018-11-04] MEDS: oxyCODONE IR 5 MG TAB PO PRN ×3 (04:32→20:14)
[2018-11-04] MEDS: IPRATROPIUM/ALBUTEROL 3 ML DEYVIAL IH SCH ×4 (05:54→21:03)
[2018-11-04] MEDS: ACETAMINOPHEN 325 MG TAB PO PRN ×3 (08:55→18:52)
[2018-11-04] MEDS: metFORMIN HCL 500 MG TAB PO SCH ×2 (08:57→21:25)
[2018-11-04] MEDS: METOPROLOL TARTRATE 25 MG TAB PO SCH ×2 (08:59→21:26)
[2018-11-04] MEDS: PANTOPRAZOLE SODIUM 40 MG TAB PO SCH (09:00)
[2018-11-04] MEDS: morphINE SR 30 MG TAB PO SCH ×3 (09:00→21:26)
[2018-11-04] MEDS: MAGNESIUM OXIDE 400 MG TAB PO SCH (09:00)
[2018-11-04] MEDS: INSULIN LISPRO 100 UNIT/ML SC SCH ×3 (09:20→20:03)
[2018-11-04] MEDS: MULTIVITAMINS 1 EACH TAB PO SCH (09:22)
[2018-11-04] MEDS: LIPASE 6,000/AMYLASE/PROTEASE (CREON) 1 CAP PO SCH ×3 (09:22→17:46)
[2018-11-04] MEDS: INSULIN GLARGINE 100 UNITS/ML UNIT SC SCH ×2 (09:24→21:26)
[2018-11-04] MEDS: HYDROmorphONE/DILAUDID 1 MG/ML INJ IVP PRN ×5 (09:31→22:59)
[2018-11-04] MEDS: DOXYCYCLINE INJ 100 MG in NS 250 ML IV SCH ×2 (09:36→21:32)
[2018-11-04] MEDS: GABAPENTIN 300 MG CAP PO SCH ×3 (09:46→21:25)
--- NOTE | 2018-11-04 09:47 | HOSPPROG ---
Hospitalist Progress Note Assessment/Plan: Acute community acquired PNA Acute hypoxemic resp failure -associated fatigue, gen weakness, and intermittent confusion/mild memory impairment -CURB65, PSI scores - moderate - 9% estimated risk of mortality COPD, not in acute exacerbation TOM, on nocturnal O2 R hand/wrist pain/swelling/inflammation DDx etiology - fracture, dislocation, crystal arthropathy Colitis Syncope Prolonged QTc CAD, s/p remote stenting HTN St IIB Pancreatic cancer, s/p resection, on FOLFIRINOX Immunocompromised status, 2/2 chemo and splenectomy Anemia, likely chronic Thrombocytopenia, likely a/w chemo H/o PE/DVT, on Xarelto Peripheral edema HLD DM2 Anxiety Plan: -Cardiac monitoring for syncope, to eval for arrhythmia. Some PVCs o/n, but no other arrhythmia noted. -Euvolemic -IV CTX. Doxycycline. -Metronidazole to help w/ colitis coverage. -Pt not wheezing, only on 3L O2. Hold off on steroid. -SVNs, O2 as needed. CPT, mucolytics. -Check XR R hand/wrist unremarkable, but not the most sensitive test. Check CT of R hand/wrist. Yesterday, discussed w/ Dr. Michaels about possibility of pseudogout. -Add Dilaudid prn breakthrough pain. -Ice prn hand pain/swelling -Check AM labs. -PT/OT. -VTE ppx - Xarelto. -Code status - full. Inpatient status- for gen weakness that has not resolved, pt has ongoing need for PT/OT. Needs ongoing Abx, cardiac monitoring. Objective: Vital Signs Temp Pulse Resp BP Pulse Ox 37.6 C 72 16 136/72 H 93 11/04/18 08:00 11/04/18 08:59 11/04/18 08:00 11/04/18 08:59 11/04/18 08:00 Laboratory Results 11/04/18 04:00 11/04/18 04:00 11/03/18 11/04/18 11/05/18 05:59 05:59 05:59 Intake Total 960 350 Output Total 550 400 Balance 410 -50 PT 19.4 SEC (12.0-15.0) H 11/02/18 10:30 INR 1.72 (0.83-1.16) H 11/02/18 10:30 - Time Spent With Patient Time Spent with Patient: greater than 35 minutes Time Spent with Patient: Greater than 35 minutes spent on this patients care, greater than 50% of time spent counseling, educating, and coordinating care regarding the above mentioned plan. - Physical Exam Constitutional: no apparent distress, appears nourished Eyes: EOMI, No scleral injection Ears, Nose, Mouth, Throat: moist mucous membranes, hearing normal Cardiovascular: regular rate and rhythym, no murmur, rub, or gallop Respiratory: no respiratory distress, no rales or rhonchi, expiratory wheeze Gastrointestinal: No guarding, No distension Skin: warm, normal color Musculoskeletal: other Neurologic: AAOx3, CN II-XII Intact Psychiatric: anxious, poor memory, other (angry), No interacting appropriately Lymph, Heme, Immunologic: No ecchymoses, No petechiae ICD10 Worksheet Patient Problems: Problems Problem Status Onset Chronic Disease Mgmt/Transtional Care Acute Pneumonia Acute Severe sepsis Acute
--- NOTE | 2018-11-04 12:39 | SOAPPROG ---
SOAP Progress Note Assessment/Plan: Assessment: 1. Pancreatic cancer s/p distal pancreatectomy and splenectomy 2. Pneumonia 3. R radial fracture, nondisplaced Plan: - continue empiric abx - ortho consult for wrist cast / splinting - ok to d/c to home from my perspective - f/u with Dr. Arango w/in 1 week to resume chemo 25 min spent w/ pt and in coordination of care. 11/04/18 12:37 Subjective: c/o R wrist pain. otherwise feels well. Objective: exam NAD Lungs CTAB CV RRR no MGr Abd: +BS NT ND Ext: swelling R wrist Vital Signs Temp Pulse Resp BP Pulse Ox 37.6 C 66 18 136/72 H 96 11/04/18 08:00 11/04/18 11:13 11/04/18 11:13 11/04/18 08:59 11/04/18 11:13 Laboratory Results 11/04/18 04:00 11/04/18 04:00 11/03/18 11/04/18 11/05/18 05:59 05:59 05:59 Intake Total 960 350 Output Total 550 400 Balance 410 -50 PT 19.4 SEC (12.0-15.0) H 11/02/18 10:30 INR 1.72 (0.83-1.16) H 11/02/18 10:30 ICD10 Worksheet Patient Problems: Problems Problem Status Onset Chronic Disease Mgmt/Transtional Care Acute Pneumonia Acute Severe sepsis Acute
--- NOTE | 2018-11-04 16:37 | ASMTCMCOM ---
CM Note CM Note Notes: Pt was admitted with PNA and sepsis. [phone] reported he found his father on the bathroom floor and doesn't know if he fell. Pt reported to son that he had been laying there for almost five hours. Pt has a hx of COPD, TOM, colitis, CAD with stenting, DM2, anxiety. PT is recommending SNF. Pt was recently discharged from [facility] after being there 30 days. He was discharged home with [facility] RN/PT/OT. Referral sent via [facility]. Pt is currently refusing another SNF d/c. CM will follow for d/c needs. D/C plan: [facility], RN/PT/OT Date Signed: 11/04/2018 04:36 PM Electronically Signed By:FRANK Harrison
--- NOTE | 2018-11-04 20:03 | GCON ---
[f rep st] CONSULTATION REFERRING PHYSICIAN: Valerie Barkley DO CHIEF COMPLAINT: Right wrist and thumb pain. HISTORY OF PRESENT ILLNESS: The patient is a 78-year-old male who was brought to the hospital 2 days ago. The night before presentation, he fell in his bathroom and was too weak to get up, fell sleep on the floor for a few hours. His son came to his house and helped him into bed. The patient then a pparently fell out of bed and woke up on the floor of his bedroom. He does recall not an injury to t hat wrist or hand. While admitted in the hospital, he was treated for pneumonia. During his admissi on, his right hand and wrist began to swell more and more, and he began to experience more pain in th at wrist. X-rays and CT were done. PAST MEDICAL HISTORY: COPD, CAD, diabetes, HLD, hypertension, TOM, pancreatic cancer, PE, pneumonia. PAST SURGICAL HISTORY: Partial pancreas and spleen resection, coronary artery stents, eye surgery, h ernia repair, carotid artery stenosis. MEDICATIONS: Please see chart. ALLERGIES: No known drug allergies. SOCIAL HISTORY: Former smoker, 40 years. FAMILY HISTORY: He has a family history of congestive heart failure. OBJECTIVE: GENERAL: The patient is alert and oriented, in no distress. MUSCULOSKELETAL: Right wri st: He has edema in the dorsal and palmar aspect of the hand up to the MP joints of the fingers. Th e fingers are stiff to the palm 1 cm, all of the fingers. There is swelling over the thumb CMC base. He does not have any tenderness to palpation of the radial styloid or the lesser tubercle or any of the other aspects of the radius. He does not have any tenderness to palpation over the ulnar head. He has marked tenderness to palpation over the CMC joint. IMAGING: I reviewed the x-rays of the hand and wrist. The images show arthritis of the CMC joint. I reviewed the CT scan of the wrist. The official read of the CT scan notes a possible nondisplaced distal radius fracture. To my own review, it also shows severe CMC arthritis with a large subchondra l cyst, loss of joint space, subchondral sclerosis, and osteophyte formation. ASSESSMENT AND PLAN: Right thumb carpometacarpal osteoarthritis flare due to trauma in setting of s evere arthritis. The CT scan does note a possible nondisplaced distal radius fracture; however, to m y own exam of the patient, he does not appear to have any tenderness to palpation of the distal radiu s itself. All his pain appears to be over the carpometacarpal joint. I recommend a thumb spica brac e until pain subsides. I encourage him to move his fingers to prevent stiffness. He should continue an ice pack to that wrist. For pain control, would recommend anti-inflammatory to bring the inflamm ation of the joint down. /[id number]/MODL
[2018-11-04] MEDS: RIVAROXABAN 10 MG TAB PO SCH (21:25)
[2018-11-04] MEDS: ATORVASTATIN CALCIUM 40 MG TAB PO SCH (21:26)
[2018-11-05] MEDS: oxyCODONE IR 5 MG TAB PO PRN ×4 (00:21→21:55)
[2018-11-05] MEDS: IPRATROPIUM/ALBUTEROL 3 ML DEYVIAL IH SCH ×4 (04:06→20:06)
[2018-11-05 06:05] LABS: PLATELET COUNT 182 10^3/uL (150-400)
[2018-11-05] MEDS: HYDROmorphONE/DILAUDID 1 MG/ML INJ IVP PRN ×4 (06:11→22:19)
[2018-11-05] MEDS: LIPASE 6,000/AMYLASE/PROTEASE (CREON) 1 CAP PO SCH ×3 (08:12→17:31)
[2018-11-05] MEDS: INSULIN LISPRO 100 UNIT/ML SC SCH ×3 (08:34→18:44)
[2018-11-05] MEDS: PANTOPRAZOLE SODIUM 40 MG TAB PO SCH (09:32)
[2018-11-05] MEDS: MULTIVITAMINS 1 EACH TAB PO SCH (09:32)
[2018-11-05] MEDS: MAGNESIUM OXIDE 400 MG TAB PO SCH (09:32)
[2018-11-05] MEDS: METOPROLOL TARTRATE 25 MG TAB PO SCH ×2 (09:32→21:54)
[2018-11-05] MEDS: morphINE SR 30 MG TAB PO SCH ×3 (09:32→21:53)
[2018-11-05] MEDS: GABAPENTIN 300 MG CAP PO SCH ×3 (09:32→21:55)
[2018-11-05] MEDS: DOXYCYCLINE HYCLATE 100 MG CAP/TAB PO SCH ×2 (09:32→21:54)
[2018-11-05] MEDS: INSULIN GLARGINE 100 UNITS/ML UNIT SC SCH ×2 (09:40→21:53)
[2018-11-05] MEDS: metFORMIN HCL 500 MG TAB PO SCH ×2 (12:32→17:33)
--- NOTE | 2018-11-05 14:26 | ASMTCMCOM ---
CM Note CM Note Notes: Patient discussed during clinical rounds, Agustina RN shared Shantell from [facility] attempted to contact for update. OT recommending SNF. PT recommending HH. [facility] last note states they are reviewing. CM called [facility], , they will accept and need discharge orders when available. CM to follow. D/C Plan: [facility] Date Signed: 11/05/2018 02:25 PM Electronically Signed By:Danisha Preston
[2018-11-05] MEDS: metroNIDAZOLE 500 MG TAB PO SCH ×2 (16:33→21:53)
--- NOTE | 2018-11-05 17:17 | HOSPPROG ---
Hospitalist Progress Note Assessment/Plan: Acute community acquired PNA Acute hypoxemic resp failure Leukocytosis -associated fatigue, gen weakness, and intermittent confusion/mild memory impairment -CURB65, PSI scores - moderate - 9% estimated risk of mortality COPD, not in acute exacerbation TOM, on nocturnal O2 R distal radius fracture Suspected R thumb tendon injury/swelling/pain/osteoarthritis Colitis Syncope, likely 2/2 hypoxia Prolonged QTc CAD, s/p remote stenting HTN St IIB Pancreatic cancer, s/p resection, on FOLFIRINOX Immunocompromised status, 2/2 chemo and splenectomy Anemia, likely chronic Thrombocytopenia, likely a/w chemo H/o PE/DVT, on Xarelto Peripheral edema HLD DM2 Anxiety Plan: -Cardiac monitoring for syncope, to eval for arrhythmia. Some PVCs o/n, but no other arrhythmia noted. -Euvolemic. -IV CTX. Doxycycline. -Metronidazole to help w/ colitis coverage. -If leukocytosis worsens, consider additional workup and changing antibiotics. -Pt not wheezing, down to 1L O2 (3L on admission). -SVNs, O2 as needed. CPT, mucolytics. -Added Dilaudid prn breakthrough pain. -Adding Toradol 15mg daily x 3 days max prn severe pain (to help w/ inflammation for hand). -Ice prn hand pain/swelling -Check AM labs. -PT/OT. -VTE ppx - Xarelto. -Code status - full. Inpatient status- for gen weakness that has not resolved, pt has ongoing need for PT/OT. Needs ongoing Abx, cardiac monitoring. Objective: Vital Signs Temp Pulse Resp BP Pulse Ox 36.8 C 68 22 H 145/73 H 94 11/05/18 15:39 11/05/18 15:39 11/05/18 15:39 11/05/18 15:39 11/05/18 15:39 Laboratory Results 11/05/18 05:55 11/05/18 05:55 11/04/18 11/05/18 11/06/18 05:59 05:59 05:59 Intake Total 350 300 500 Output Total 400 700 300 Balance -50 -400 200 PT 19.4 SEC (12.0-15.0) H 11/02/18 10:30 INR 1.72 (0.83-1.16) H 11/02/18 10:30 - Time Spent With Patient Time Spent with Patient: greater than 35 minutes Time Spent with Patient: Greater than 35 minutes spent on this patients care, greater than 50% of time spent counseling, educating, and coordinating care regarding the above mentioned plan. ICD10 Worksheet Patient Problems: Problems Problem Status Onset Pneumonia Acute Severe sepsis Acute Chronic Disease [facility] Acute
[2018-11-05] MEDS ORDERED: KETOROLAC 15 MG/1 ML SDV IVP PRN (17:18)
[2018-11-05] MEDS ORDERED: KETOROLAC 15 MG/1 ML SDV IVP SCH (18:00)
[2018-11-05] MEDS: RIVAROXABAN 10 MG TAB PO SCH (21:54)
[2018-11-05] MEDS: ATORVASTATIN CALCIUM 40 MG TAB PO SCH (21:54)
[2018-11-06] MEDS: oxyCODONE IR 5 MG TAB PO PRN ×5 (02:01→20:42)
[2018-11-06] MEDS: IPRATROPIUM/ALBUTEROL 3 ML DEYVIAL IH SCH ×4 (04:45→19:52)
[2018-11-06] MEDS: HYDROmorphONE/DILAUDID 1 MG/ML INJ IVP PRN ×4 (04:51→21:21)
[2018-11-06] MEDS: metroNIDAZOLE 500 MG TAB PO SCH ×2 (05:27→14:04)
[2018-11-06 05:51] LABS: PLATELET COUNT 203 10^3/uL (150-400)
[2018-11-06] MEDS: LIPASE 6,000/AMYLASE/PROTEASE (CREON) 1 CAP PO SCH ×3 (07:43→17:29)
[2018-11-06] MEDS: metFORMIN HCL 500 MG TAB PO SCH ×2 (07:44→17:30)
[2018-11-06] MEDS: INSULIN LISPRO 100 UNIT/ML SC SCH ×3 (07:57→17:29)
[2018-11-06] MEDS: PANTOPRAZOLE SODIUM 40 MG TAB PO SCH (08:57)
[2018-11-06] MEDS: DOXYCYCLINE HYCLATE 100 MG CAP/TAB PO SCH ×2 (08:57→20:42)
[2018-11-06] MEDS: GABAPENTIN 300 MG CAP PO SCH ×3 (08:57→20:41)
[2018-11-06] MEDS: METOPROLOL TARTRATE 25 MG TAB PO SCH ×2 (08:58→20:42)
[2018-11-06] MEDS: MAGNESIUM OXIDE 400 MG TAB PO SCH (08:58)
[2018-11-06] MEDS: morphINE SR 30 MG TAB PO SCH ×3 (08:58→21:50)
[2018-11-06] MEDS: MULTIVITAMINS 1 EACH TAB PO SCH (08:58)
[2018-11-06] MEDS: INSULIN GLARGINE 100 UNITS/ML UNIT SC SCH ×2 (09:46→21:50)
[2018-11-06] MEDS: KETOROLAC 15 MG/1 ML SDV IVP PRN (10:57)
--- NOTE | 2018-11-06 11:54 | ASMTCMCOM ---
CM Note CM Note Notes: Patient plan of care reviewed in am rounds. Patient is a 78 year old male with multiple medical problems found down at home and was admitted with pneumonia currently with [facility] and states he recently stated at [facility] but refusing to consider SNF at this time. He has a son locally but that is his only source of support. Palliative care to meet with patient today. Plan still unclear,. plan: Home with resumption of previous HHC versus SNF Date Signed: 11/06/2018 11:51 AM Electronically Signed By:Birdie Somers RN
--- NOTE | 2018-11-06 14:43 | SOAPPROG ---
SOAP Progress Note Assessment/Plan: E&M pancreatic cancer * Pancreatic cancer s/p neoadjuvant chemotherapy than distal pancreatectomy and splenectomy and now on adjuvant chemotherapy: He is anxious to get restarted on adjuvant chemotherapy. His chemo was delayed from last to this week as long as he is doing well. * Pneumonia: He seems to be slowly getting better on the current antibiotics. Once she is been cleared by medicine, there is no oncological contraindication for him to go home. * Right radial fracture, nondisplaced: seen by ortho Subjective: He had been feeling pretty well yesterday although this morning he felt more fatigued but most the symptoms were somewhat vague. He denies any chest pain or worsening shortness of breath. His oxygenation levels have been good and his pulse has been normal. He denies any GI complaints. Objective: Vital Signs Temp Pulse Resp BP Pulse Ox 36.8 C 65 16 159/84 H 91 L 11/06/18 11:00 11/06/18 11:00 11/06/18 11:00 11/06/18 11:00 11/06/18 11:00 Laboratory Results 11/06/18 05:30 11/05/18 05:55 11/05/18 11/06/18 11/07/18 05:59 05:59 05:59 Intake Total 300 900 Output Total 700 850 600 Balance -400 50 -600 PT 19.4 SEC (12.0-15.0) H 11/02/18 10:30 INR 1.72 (0.83-1.16) H 11/02/18 10:30 Physical Exam - Physical Exam Respiratory: rhonchi (subtle; left base) Cardiac/Chest: regular rate, rhythm Abdomen: non-tender, soft ICD10 Worksheet Patient Problems: Problems Problem Status Onset Pneumonia Acute Severe sepsis Acute Chronic Disease [facility]an[facility]ional Care Acute
[2018-11-06] MEDS ORDERED: FUROSEMIDE 40 MG/4 ML VIAL IVP ONE (16:38)
--- NOTE | 2018-11-06 16:43 | HOSPPROG ---
Hospitalist Progress Note Assessment/Plan: 78 yo M w pancreatic CA here w pneumoni, AHRF, fall, maybe syncope syncope: no events tele ekg on admit non ischemic (interp by me) no trop no sig events on tele does have h/o falls AHRF: early copd plus small pneumonia may be component of volume overload (h/o intact LVEF) w jvd so give lasix X1 pneumonia: ceftriaxone doxy h/o ischemic colitis no sx dc flagyl fall: not a fracture VTE; xarelto proph: as above dispo: inpt Subjective: case d/w dr osborne Objective: Vital Signs Temp Pulse Resp BP Pulse Ox 36.8 C 55 L 16 159/84 H 93 11/06/18 11:00 11/06/18 15:26 11/06/18 15:26 11/06/18 11:00 11/06/18 15:26 Laboratory Results 11/06/18 05:30 11/05/18 05:55 11/05/18 11/06/18 11/07/18 05:59 05:59 05:59 Intake Total 300 900 Output Total 700 850 650 Balance -400 50 -650 PT 19.4 SEC (12.0-15.0) H 11/02/18 10:30 INR 1.72 (0.83-1.16) H 11/02/18 10:30 - Physical Exam Constitutional: no apparent distress, appears nourished Eyes: PERRL, anicteric sclera Ears, Nose, Mouth, Throat: moist mucous membranes, hearing normal Cardiovascular: regular rate and rhythym, no murmur, rub, or gallop, JVD, edema Respiratory: no respiratory distress, no rales or rhonchi Gastrointestinal: normoactive bowel sounds, soft, non-tender abdomen Genitourinary: No estes in urethra Skin: warm, normal color Musculoskeletal: No full muscle strength Neurologic: AAOx3 ICD10 Worksheet Patient Problems: Problems Problem Status Onset Pneumonia Acute Severe sepsis Acute Chronic Disease [facility]/Transtional Care Acute
[2018-11-06] MEDS: RIVAROXABAN 10 MG TAB PO SCH (20:41)
[2018-11-06] MEDS: POLYETHYLENE GLYCOL 3350 17 GM PKT PO SCH (20:41)
[2018-11-06] MEDS: ATORVASTATIN CALCIUM 40 MG TAB PO SCH (20:42)
[2018-11-07] MEDS: oxyCODONE IR 5 MG TAB PO PRN ×4 (03:31→18:58)
[2018-11-07] MEDS: IPRATROPIUM/ALBUTEROL 3 ML DEYVIAL IH SCH ×4 (04:49→20:01)
[2018-11-07] MEDS: HYDROmorphONE/DILAUDID 1 MG/ML INJ IVP PRN ×3 (08:19→21:20)
[2018-11-07] MEDS: GABAPENTIN 300 MG CAP PO SCH ×3 (08:20→21:22)
[2018-11-07] MEDS: PANTOPRAZOLE SODIUM 40 MG TAB PO SCH (08:20)
[2018-11-07] MEDS: DOXYCYCLINE HYCLATE 100 MG CAP/TAB PO SCH ×2 (08:20→21:23)
[2018-11-07] MEDS: LIPASE 6,000/AMYLASE/PROTEASE (CREON) 1 CAP PO SCH ×3 (08:21→17:15)
[2018-11-07] MEDS: metFORMIN HCL 500 MG TAB PO SCH ×2 (08:21→17:15)
[2018-11-07] MEDS: INSULIN GLARGINE 100 UNITS/ML UNIT SC SCH ×2 (08:21→22:25)
[2018-11-07] MEDS: MAGNESIUM OXIDE 400 MG TAB PO SCH (08:21)
[2018-11-07] MEDS: morphINE SR 30 MG TAB PO SCH ×3 (08:21→22:25)
[2018-11-07] MEDS: METOPROLOL TARTRATE 25 MG TAB PO SCH ×2 (08:22→21:23)
[2018-11-07] MEDS: INSULIN LISPRO 100 UNIT/ML SC SCH ×3 (08:23→19:26)
[2018-11-07] MEDS: MULTIVITAMINS 1 EACH TAB PO SCH (09:00)
--- NOTE | 2018-11-07 09:12 | SOAPPROG ---
SOMONIK Progress Note Assessment/Plan: E&M pancreatic cancer * Pancreatic cancer s/p neoadjuvant chemotherapy then distal pancreatectomy and splenectomy then adjuvant chemotherapy: He is anxious to get restarted on adjuvant chemotherapy. His chemo was delayed from last to this week as long as he is doing well. * Pneumonia: He is better on the current antibiotics with negative cultures. There is no oncological contraindication for him to go home. * Right radial fracture, nondisplaced: seen by ortho Subjective: Feeling better this morning. Right wrist still sore. Objective: Vital Signs Temp Pulse Resp BP Pulse Ox 36.8 C 68 16 138/80 H 92 11/07/18 08:00 11/07/18 08:22 11/07/18 08:00 11/07/18 08:22 11/07/18 08:00 Laboratory Results 11/06/18 05:30 11/05/18 05:55 11/06/18 11/07/18 11/08/18 05:59 05:59 05:59 Intake Total 900 1050 Output Total 850 650 Balance 50 400 PT 19.4 SEC (12.0-15.0) H 11/02/18 10:30 INR 1.72 (0.83-1.16) H 11/02/18 10:30 Physical Exam - Physical Exam General Appearance: no apparent distress Respiratory: lungs clear Cardiac/Chest: regular rate, rhythm ICD10 Worksheet Patient Problems: Problems Problem Status Onset Pneumonia Acute Severe sepsis Acute Chronic Disease [facility]/Tran[facility]ional Care Acute
[2018-11-07] MEDS: POLYETHYLENE GLYCOL 3350 17 GM PKT PO SCH ×2 (10:23→20:59)
--- NOTE | 2018-11-07 11:12 | ASMTCMCOM ---
CM Note CM Note Notes: Patient met with palliative care with Lila Ibarra, myself, Juana from [facility] and Makayla MILES from [facility]. Discussed palliative care with patient and his son. hey are agreeable and anxious to have more support. Patient is also interested in [employer]. I will request a lila on his behalf. [facility] to follow. Likely to discharge with Pall and HHC. CM available should other needs arise. Plan: Home with HHC and palliative services with [facility]. Date Signed: 11/07/2018 11:10 AM Electronically Signed By:Birdie Somers RN
[2018-11-07] MEDS: KETOROLAC 15 MG/1 ML SDV IVP PRN ×2 (13:43→21:17)
--- NOTE | 2018-11-07 16:40 | HOSPPROG ---
Hospitalist Progress Note Assessment/Plan: 78 yo M w pancreatic CA here w pneumonia, AHRF, fall, maybe syncope syncope: no events tele ekg on admit non ischemic (interp by me) no trop no sig events on tele does have h/o falls weakness today- normal neuro not a clear answer, suspect fatiguie per pt, OK for home outpt pt AHRF: early copd plus small pneumonia may be component of volume overload (h/o intact LVEF) w jvd so give lasix X1 minimal impact on 02 requirement will need home 02 pneumonia: ceftriaxone doxy complete 4 add'l days augmentin.doxy scripts sent to h/o ischemic colitis no sx dc flagyl fall: not a fracture VTE; xarelto proph: as above dispo: inpt Subjective: spell of fatigue/weakness this afternoon. normal pulse, neg orthostatics Objective: Vital Signs Temp Pulse Resp BP Pulse Ox 36.8 C 78 16 139/74 H 90 L 11/07/18 15:21 11/07/18 15:21 11/07/18 15:21 11/07/18 15:21 11/07/18 15:21 Laboratory Results 11/06/18 05:30 11/05/18 05:55 11/06/18 11/07/18 11/08/18 05:59 05:59 05:59 Intake Total 900 1050 Output Total 850 650 Balance 50 400 PT 19.4 SEC (12.0-15.0) H 11/02/18 10:30 INR 1.72 (0.83-1.16) H 11/02/18 10:30 - Physical Exam Constitutional: no apparent distress, appears nourished Eyes: PERRL, anicteric sclera Ears, Nose, Mouth, Throat: moist mucous membranes, hearing normal Cardiovascular: regular rate and rhythym, no murmur, rub, or gallop Respiratory: no respiratory distress Gastrointestinal: normoactive bowel sounds, soft, non-tender abdomen Genitourinary: No estes in urethra Skin: warm, normal color Musculoskeletal: full muscle strength Neurologic: AAOx3 Psychiatric: interacting appropriately ICD10 Worksheet Patient Problems: Problems Problem Status Onset Pneumonia Acute Severe sepsis Acute Chronic Disease [facility]/Tran[facility]ional Care Acute
[2018-11-07] MEDS: RIVAROXABAN 10 MG TAB PO SCH (21:24)
[2018-11-07] MEDS: ATORVASTATIN CALCIUM 40 MG TAB PO SCH (21:24)
[2018-11-08] MEDS: oxyCODONE IR 5 MG TAB PO PRN ×4 (00:17→12:24)
[2018-11-08] MEDS: HYDROmorphONE/DILAUDID 1 MG/ML INJ IVP PRN ×2 (03:44→07:44)
[2018-11-08] MEDS: IPRATROPIUM/ALBUTEROL 3 ML DEYVIAL IH SCH ×2 (05:37→11:07)
[2018-11-08] MEDS: LIPASE 6,000/AMYLASE/PROTEASE (CREON) 1 CAP PO SCH (07:38)
[2018-11-08 08:39] VITALS: BP 145/75
[2018-11-08] MEDS: GABAPENTIN 300 MG CAP PO SCH (09:33)
[2018-11-08] MEDS: morphINE SR 30 MG TAB PO SCH (09:33)
[2018-11-08] MEDS: metFORMIN HCL 500 MG TAB PO SCH (09:33)
[2018-11-08] MEDS: METOPROLOL TARTRATE 25 MG TAB PO SCH (09:34)
[2018-11-08] MEDS: INSULIN GLARGINE 100 UNITS/ML UNIT SC SCH (09:34)
[2018-11-08] MEDS: MAGNESIUM OXIDE 400 MG TAB PO SCH (09:34)
[2018-11-08] MEDS: DOXYCYCLINE HYCLATE 100 MG CAP/TAB PO SCH (09:34)
[2018-11-08] MEDS: MULTIVITAMINS 1 EACH TAB PO SCH (09:34)
[2018-11-08] MEDS: PANTOPRAZOLE SODIUM 40 MG TAB PO SCH (09:34)
--- NOTE | 2018-11-08 09:36 | PDHOMEO2F ---
Home Oxygen Face to Face Home Orders: I certify that a physician or a nurse practitioner or physician's wet process assistant head miller has had a [id number]-[id number]-jdoh encounter with this patient on the date of this order due to the diagnosis listed, which relates to the primary reason the patient requires home oxygen. Alternative treatments have been tried, or considered, and deemed ineffective. It is anticipated that supplemental oxygen will result in improvement with treatment. Home oxygen qualifying diagnosis: Pneuomonia Home oxygen secondary diagnosis: Acute hypoxia SpO2 on room air (%): 82 Frequency of home oxygen needed: continuous Home oxygen liters per minute: 2 Home oxygen delivery device: nasal cannula Concentrator: Yes E-tanks for mobility and back up: Yes If ordering portable O2, is the patient mobile in the home?: Yes I certify that, based on these findings, the home oxygen is medically necessary for this patient for the following length of time. Length of time home oxygen needed: 99 years
[2018-11-08] MEDS: ACETAMINOPHEN 325 MG TAB PO PRN (09:38)
[2018-11-08] MEDS: INSULIN LISPRO 100 UNIT/ML SC SCH (10:35)
[2018-11-08] MEDS: POLYETHYLENE GLYCOL 3350 17 GM PKT PO SCH (10:36)
--- NOTE | 2018-11-08 10:49 | PDHOMEO2F ---
Home Oxygen Face to Face Home Orders: I certify that a physician or a nurse practitioner or physician's payroll and benefits assistant has had a [id number] encounter with this patient on the date of this order due to the diagnosis listed, which relates to the primary reason the patient requires home oxygen. Alternative treatments have been tried, or considered, and deemed ineffective. It is anticipated that supplemental oxygen will result in improvement with treatment. Home oxygen qualifying diagnosis: COPD SpO2 on room air (%): 82 Frequency of home oxygen needed: continuous Home oxygen liters per minute: 2 Home oxygen delivery device: nasal cannula Concentrator: Yes E-tanks for mobility and back up: Yes If ordering portable O2, is the patient mobile in the home?: Yes I certify that, based on these findings, the home oxygen is medically necessary for this patient for the following length of time. Length of time home oxygen needed: 99 years
--- NOTE | 2018-11-08 11:12 | ASMTLACE ---
LACE Length of stay for Answers: 4-6 days current admission Acuity / Level of Answers: Yes Care: Did the patient have an inpatient admission? Comorbidities - select Answers: Any tumor (including all that apply lymphoma or leukemia) Chronic pulmonary disease Diabetes (uncontrolled or controlled) Opioid dependence / Chronic pain Other Notes: HTN # of Emergency department Answers: 1-2 visits in the last 6 months Score: 18 Date Signed: 11/08/2018 11:11 AM Electronically Signed By:DOTTIE Acosta
--- NOTE | 2018-11-08 11:19 | ASMTDCNOTE ---
Case Management Discharge Discharge Order Complete? Answers: Yes Patient to Obtain Answers: Independently Medications Faxed Final Orders Answers: Yes Agency/Facility Transfer Answers: Yes Report Printed & Faxed to Receiving Agency Discharge Comments Notes: CM discussed discharge plan with pt. CM offered to arrange him wheelchair transportation and he refused and said that he would take an Uber and denied needing assistance. Pt said he has scheduled his follow-up appts and denies needing assistance obtaining medications. Follow-up with [facility] PT/OT/RN is arranged as well as [facility]. Pt is aware they will call after discharge, number and address verified. Pt has own walker. No other CM needs identified. Date Signed: 11/08/2018 11:17 AM Electronically Signed By:DOTTIE Acosta
--- NOTE | 2018-11-08 11:24 | PDIAF ---
- Diagnosis Diagnosis: CAP Code Status: Full Code - Medication Management Discharge Medications: electronically signed and located in the Home Medication List. - Orders Services needed: Home Care, Physical Therapy, Occupational Therapy Home Care Face to Face: I certify that this patient was under my care and that I had the required [id number] encounter meeting the encounter requirements on the discharge day. My findings support the fact that the patient is homebound as defined in Home Care Face to Face Continued: CMS Chapter 7 Medicare Benefits Manual 30.1.1 , The condition of the patient is such that there exists a normal inability to leave home and consequently, leaving home would require a considerable and taxing effort. Diet Recommendation: no restrictions on diet Diet Texture: Regular Texture Diet Additional Instructions: Ortho: Thumb spica all times except hygiene Encourage finger ROM, elevation Ice as needed - Follow Up Care Current Providers and Referrals: Marco Pedraza MD [Medical Doctor] - As per Instructions Estuardo Yin MD [Medical Doctor] - follow up in 2 weeks
--- NOTE | 2018-11-08 11:56 | ASDISCHSUM ---
Discharge Information Plan Status:Home with Home Health Medically Cleared to Leave: Discharge Date:11/08/2018 12:32 PM D/C Disposition:Home Health Service ADT D/C Disposition:Home, Routine, Self-Care Projected Discharge Date:11/13/2018 11:00 AM Transportation at D/C:Self Discharge Delay Reason: Follow-Up Date:11/13/2018 11:00 AM Discharge Slot: Final Diagnosis: Placement Information Referral Type:*Home Health Care Services Referral ID:[id number] Provider Name:[facility] Address 1:[address] Address 2: City:[place] Selection Factors: State:[place] Referral Type:Palliative Care Referral ID:[id number] Provider Name:[facility] Address 1:[address] Address 2: City:[place] Selection Factors: State:[place] Patient Contact Information Contact Name:NATALI Relationship:Son Address: Work Phone: City: [facility] Phone: [facility] Code: Email: Financial Information Financial Class:Medicare Primary Plan Desc:MEDICARE INPATIENT Primary Plan Number:[id number] Secondary Plan Desc: Secondary Plan Number: Assessment Information LACE LACE Length of stay for Answers: 4-6 days current admission Acuity / Level of Answers: Yes Care: Did the patient have an inpatient admission? Comorbidities - select Answers: Any tumor (including all that apply lymphoma or leukemia) Chronic pulmonary disease Diabetes (uncontrolled or controlled) Opioid dependence / Chronic pain Other Notes: HTN # of Emergency department Answers: 1-2 visits in the last 6 months Score: 18 Date Signed: 11/08/2018 11:11 AM Electronically Signed By:DOTTIE Acosta [facility] CM Progress Note CM Note CM Note Notes: Pt was admitted with PNA and sepsis. Pt's son Harman [facility] [phone] reported he found his father on the bathroom floor and doesn't know if he fell. Pt reported to son that he had been laying there for almost five hours. Pt has a hx of COPD, TOM, colitis, CAD with stenting, DM2, anxiety. PT is recommending SNF. Pt was recently discharged from [facility] after being there 30 days. He was discharged home with [facility] RN/PT/OT. Referral sent via [email or web address]. Pt is currently refusing another SNF d/c. CM will follow for d/c needs. D/C plan: [facility], RN/PT/OT Date Signed: 11/04/2018 04:36 PM Electronically Signed By:FRANK Harrison [facility] CM Progress Note CM Note CM Note Notes: Patient discussed during clinical rounds, Agustina Stinson from [facility] attempted to contact for update. OT recommending SNF. [facility] CM called [facility], , they will accept and need discharge orders when available. CM to follow. D/C Plan: [facility] Date Signed: 11/05/2018 02:25 PM Electronically Signed By:Danisha Preston [facility] Progress Note CM Note CM Note Notes: Patient plan of care reviewed in am rounds. Patient is a 78 year old male with multiple medical problems found down at home and was admitted with pneumonia currently with [facility] and states he recently stated at [facility] but refusing to consider SNF at this time. He has a son locally but that is his only source of support. Palliative care to meet with patient today. Plan still unclear,. plan: Home with resumption of previous HHC versus SNF Date Signed: 11/06/2018 11:51 AM Electronically Signed By:Birdie Somers RN [facility] Progress Note CM Note CM Note Notes: Patient met with palliative care with Lila Ibarra, myself, Juana from and Makayla MILES from [facility]. Discussed palliative care with patient and his son. hey are agreeable and anxious to have more support. Patient is also interested in [employer]. I will request a lila on his behalf. [facility] to follow. Likely to discharge with Pall and HHC. CM available should other needs arise. Plan: Home with HHC and palliative services with [facility]. Date Signed: 11/07/2018 11:10 AM Electronically Signed By:Birdie Somers RN Case Management Discharge Plan Note Case Management Discharge Discharge Order Complete? Answers: Yes Patient to Obtain Answers: Independently Medications Faxed Final Orders Answers: Yes Agency/Facility Transfer Answers: Yes Report Printed & Faxed to Receiving Agency Discharge Comments Notes: CM discussed discharge plan with pt. CM offered to arrange him wheelchair transportation and he refused and said that he would take an Uber and denied needing assistance. Pt said he has scheduled his follow-up appts and denies needing assistance obtaining medications. Follow-up with [facility] PT/OT/RN is arranged as well as [facility]. Pt is aware they will call after discharge, number and address verified. Pt has own walker. No other CM needs identified. Date Signed: 11/08/2018 11:17 AM Electronically Signed By:DOTTIE Acosta Intervention Information Intervention Type:*IM-Signed Date of Service:11/08/2018 09:52 AM Patient Type:Inpatient Staff Member:Shy Parsons Hours: Discipline: Severity: Comment:
--- NOTE | 2018-11-08 12:50 | SOAPPROG ---
ASHER Progress Note Assessment/Plan: E&M pancreatic cancer * Pancreatic cancer s/p neoadjuvant chemotherapy then distal pancreatectomy and splenectomy then adjuvant chemotherapy: He is anxious to get restarted on adjuvant chemotherapy. His chemo was delayed from last to this week as long as he is doing well. He has appt tomorrow. * Pneumonia: He is better on the current antibiotics with negative cultures. There is no oncological contraindication for him to go home. * Right radial fracture, nondisplaced: seen by ortho Subjective: Feeling better and ready to go home. Has appt with Dr. Arango tomorrow am. Objective: Vital Signs Temp Pulse Resp BP Pulse Ox 36.8 C 80 18 145/75 H 88 L 11/08/18 08:00 11/08/18 08:00 11/08/18 08:00 11/08/18 09:34 11/08/18 08:00 Laboratory Results 11/06/18 05:30 11/05/18 05:55 11/07/18 11/08/18 11/09/18 05:59 05:59 05:59 Intake Total 1050 300 Output Total 650 1350 300 Balance 400 -1050 -300 PT 19.4 SEC (12.0-15.0) H 11/02/18 10:30 INR 1.72 (0.83-1.16) H 11/02/18 10:30 Physical Exam - Physical Exam General Appearance: no apparent distress Respiratory: lungs clear Cardiac/Chest: regular rate, rhythm ICD10 Worksheet Patient Problems: Problems Problem Status Onset Chronic Disease [facility] Acute Pneumonia Acute Severe sepsis Acute
--- NOTE | 2018-11-08 13:20 | GDS ---
[f rep st] DISCHARGE SUMMARY DISCHARGE DIAGNOSES: 1. Syncope. 2. Pancreatic cancer. 3. Acute hypoxemic respiratory failure. 4. Community-acquired pneumonia. 5. History of ischemic colitis. 6. Fall with right wrist pain. No fracture. 7. Chronic obstructive pulmonary disease. 8. Coronary artery disease. 9. Diabetes. 10. Hyperlipidemia. 11. Hypertension. 12. Obstructive sleep apnea. 13. Pulmonary embolism. 14. Nondisplaced distal radius fracture. CONSULTATIONS: Oncology. HPI: 78-year-old male with COPD, CAD, pancreatic cancer, presents with generalized weakness and fatigue. He fell the night before arrival and was too weak to get up. He went to his appointment at [facility] and was found to be rhonchorous and hypoxic to 86% on room air. X-ray in the ER showed left lower lobe pneumonia. HOSPITAL COURSE BY PROBLEM: 1. Community-acquired pneumonia: Will complete a total of 7 days of antibiotics today. He has remained afebrile. 2. Acute hypoxemic respiratory failure: Secondary to pneumonia and likely COPD. Will be discharged on oxygen. 3. Pancreatic cancer: Status post kd adjunctive chemo, distal pancreatic ectomy and splenectomy. Follow up with his oncologist. 4. Right nondisplaced fracture of distal radius: In a splint. Follow up with Orthopedic in 2 weeks. 5. History of PE on Xarelto. History of ischemic colitis, asymptomatic. 6. Syncope, suspect related to acute infection. EKG nonischemic. 7. Patient is stable for discharge home. 8. CAD, statin, beta-martin. 9. Diabetes. Continue home insulin. 10. Hypertension. Resume home medications. NEW MEDICATIONS: Doxycycline for 1 more dose. FOLLOW UP: 1. Primary care physician. 2. Dr. Alfonso with Orthopedics. 3. Oncologist. PHYSICAL EXAMINATION: VITAL SIGNS: Today, temperature 36.8, blood pressure 145/ 75, heart rate in the 80s, respiration 16, 83% on room air, 93 on 2 L. GENERAL: No acute distress. Mildly fatigued. HEENT: PERRLA. Moist mucous membranes. CV: Regular rate and rhythm. LUNGS: Decreased breath sounds at left base. ABDOMEN: Soft, nontender. : No [place]. MUSCULOSKELETAL: Moving all 4 extremities. NEURO : 2 through 12 intact. PSYCH: Alert and oriented x3. /[id number]/MODL MTDD
== END 2018-11-08 12:32 | disposition home health service (06) | DRG 193 ==
LOC: F2N 13:46 → OBSVTOIN 22:57 → F1N 11-03 15:06
PROVIDERS: ADMIT Internal Medicine; ATTEND Internal Medicine
DX: J18.9 Pneumonia, unspecified organism (principal); J96.01 Acute respiratory failure with hypoxia; C25.9 Malignant neoplasm of pancreas, unspecified; S52.501A Unspecified fracture of the lower end of right radius, initial encounter for closed fracture; W19.XXXA Unspecified fall, initial encounter; R55 Syncope and collapse; M19.041 Primary osteoarthritis, right hand; K55.9 Vascular disorder of intestine, unspecified; J44.9 Chronic obstructive pulmonary disease, unspecified; I10 Essential (primary) hypertension; I25.10 Atherosclerotic heart disease of native coronary artery without angina pectoris; E11.9 Type 2 diabetes mellitus without complications; G47.33 Obstructive sleep apnea (adult) (pediatric); E78.5 Hyperlipidemia, unspecified; I45.81 Long QT syndrome; Z95.5 Presence of coronary angioplasty implant and graft; Z79.01 Long term (current) use of anticoagulants; Z86.718 Personal history of other venous thrombosis and embolism; Z86.711 Personal history of pulmonary embolism; Z87.891 Personal history of nicotine dependence
CPT/HCPCS: 87449-90; 92523-GN; 96365; 97116-GP; 97161-GP; 97165-GO; 97530-GO; 97535-GO; J0456; J0696; J1170; J1815; J1885; J1940; J2550; J3475

== ENCOUNTER → 2018-11-30 | Outpatient (CLI) | payer OTHER | LOC: BHERIE 14:45 | PROVIDERS: ATTEND Internal Medicine Interventional Cardiology | DX: I25.10 Atherosclerotic heart disease of native coronary artery without angina pectoris (principal) | CPT/HCPCS: 93306-PO ==

== ENCOUNTER → 2018-12-13 | Outpatient (CLI) | payer OTHER | LOC: FLAB 11:12 ==

== ENCOUNTER 2018-12-19 13:22 | Emergency (ER) | payer OTHER | END 2018-12-19 16:14 | disposition home or self-care (01) | LOC: CED 13:22 ==